=== PATIENT | female | born 1990 | race Caucasian/White ===

== ENCOUNTER → 2021-12-16 | Outpatient (CLI) | payer BC ==
--- NOTE | 2021-12-16 11:36 | RAD ---
EXAMINATION: US OB <14 WKS +TV, 12/16/2021 10:41 AM CLINICAL INDICATION: Cramping for one week, first trimester . TECHNIQUE: Grayscale, color and spectral Doppler ultrasound images of the pelvis via first trimester OB protocol. COMPARISON: None FINDINGS: The uterus measures 8.6 x 5.4 x 3.8 cm. There is a gestational sac containing an embryo with crown-ru mp length of 0.32 cm, consistent with gestational age 6 weeks 0 days. A yolk sac is present. No cardiac activity detected at this time. The right ovary measures 4.0 x 6 2.9 x 1.7 cm. The left ovary measures 2.3 x 2.0 x 1.0 cm. Normal blo od flow to both ovaries.. Normal ultrasound venous Doppler blood flow to the left ovary. No adnexal mass or free fluid. IMPRESSION: Early intrauterine of uncertain viability, likely too early to detect cardiac a ctivity. Recommend short interval follow-up ultrasound to ensure viability. Electronically signed by: Francia Harley MD (12/16/2021 11:34 AM) [id number]
== END ==
LOC: US 10:28
PROVIDERS: ATTEND Family Medicine
DX: O26.891 Other specified pregnancy related conditions, first trimester (principal); Z3A.01 Less than 8 weeks gestation of pregnancy
CPT/HCPCS: 76801; 76817